=== PATIENT | female | born 1960 | race American Indian/Alaskan Native ===

== ENCOUNTER 2019-06-13 09:47 | Outpatient (CLI) | payer MEDICAID ==
--- NOTE | 2019-06-13 13:31 | Nuclear Medicine Report ---
PARATHYROID SCAN HISTORY: Hypercalcemia COMPARISON: None. TECHNIQUE: Following the intravenous administration of [id number], early and delayed anterior i mages of the neck and upper thorax were acquired. RADIOPHARMACEUTICAL: 20 mCi of [id number] FINDINGS: EARLY IMAGING: Slightly asymmetric distribution of the radiotracer with increased accumulation in the right side. DELAYED IMAGING: Near complete symmetric washout from the normal thyroid tissue. No abnormal thoraci c activity. Additional Findings: None. IMPRESSION: No parathyroid adenoma is identified. Signer Name: Rafael Akins Jr, MD Signed: 06/13/2019 1:27 PM Workstation Name: [id number]
== END 2019-06-13 09:48 | disposition home or self-care (01) ==
LOC: NM 09:47
PROVIDERS: ATTEND Internal Medicine Nephrology
DX: E83.52 Hypercalcemia (principal); I10 Essential (primary) hypertension; K21.9 Gastro-esophageal reflux disease without esophagitis; E66.9 Obesity, unspecified; Z90.710 Acquired absence of both cervix and uterus
CPT/HCPCS: 78070; A9500

== ENCOUNTER 2021-07-28 06:26 | Day surgery (SDC) | payer MEDICAID ==
[2021-07-28] MEDS ORDERED: SODIUM CHLORIDE 0.9% 1000 ML 1,000 ML IV SCH (07:00)
[2021-07-28] MEDS ORDERED: propofoL 200 MG/20 ML VIAL IV ONE ×2 (07:13→07:14)
[2021-07-28] MEDS ORDERED: LIDOCAINE MPF (2%) 20 MG/1 ML VIAL 5 ML ONE (07:13)
[2021-07-28] MEDS ORDERED: WATER FOR IRRIG STERILE 250 ML BOTTLE IR ONE (07:18)
[2021-07-28] MEDS ORDERED: WATER FOR IRRIG STERILE 1,000 ML BOTTLE ONE (07:18)
--- NOTE | 2021-07-28 07:50 | Anesthesia Day of Surgery ---
Anesthesia Day of Surgery - Day of Surgery Patient Examined: Yes Patient H&P Reviewed: Yes Patient is NPO: Yes
--- NOTE | 2021-07-28 07:50 | Anesthesia Consultation ---
Anesthesia Consult and Med Hx Date of service: 07/28/21 - Airway Anesthetic Teeth Evaluation: Poor, Chipped, Partials (upper ) ROM Head & Neck: Adequate Mental/Hyoid Distance: Adequate Mallampati Class: Class I Intubation Access Assessment: Probably Good - Pulmonary Exam CTA: Yes - Cardiac Exam Cardiac Exam: RRR - Pre-Operative Health Status ASA Pre-Surgery Classification: ASA3 Proposed Anesthetic Plan: MAC - Pulmonary Hx Smoking: No Hx Asthma: No Hx Sleep Apnea: No - Cardiovascular System Hx Hypertension: Yes Hx Coronary Artery Disease: Yes (on medical therapy) Hx Heart Attack/AMI: No (h/o Cardiomyopathy/CHF but recent EF 50-55%) Hx Angina: No Hx Cardia Arrhythmia: No Hx Peripheral Vascular Disease: No (+ peripheral edema on Lasix PRN) - Central Nervous System Hx Seizures: No CVA: No - Gastrointestinal Hx Gastroesophageal Reflux Disease: Yes - Endocrine Hx End Stage Renal Disease: Yes (on HD) Hx Non-Insulin Dependent Diabetes: No Hx Thyroid Disease: No - Hematic Hx Anemia: Yes (FOLLOWED BY DR SHEIKH) - Other Systems Hx Alcohol Use: No Hx Substance Use: No Hx Obesity: Yes (BMI= 38)
--- NOTE | 2021-07-28 08:54 | Short Stay Summary ---
Short Stay Documentation Date of service: 07/28/21 Narrative H&P: The patient presents for high risk colon cancer screening, father had colon cancer. Last study 9 years ago. - History Past Medical History: heart failure, hypertension, other (chronic kidney disease, stage 3) Past Surgical History: cholecystectomy, hysterectomy Social history: no significant social history - Allergies and Medications Current Medications: Allergies No Known Allergies Allergy (Verified 06/16/15 14:56) Home Medications Medication Instructions Recorded Confirmed Last Taken Type Aspirin [Aspirin BABY CHEW TAB] 81 mg PO DAILY 06/16/15 07/23/15 07/22/15 History Famotidine [Pepcid] 20 mg PO DAILY 06/16/15 07/23/15 07/22/15 History Furosemide [Lasix TAB] 40 mg PO BID 06/16/15 07/23/15 07/22/15 History Gabapentin 300 mg PO BID 06/16/15 07/23/15 07/22/15 History Loratadine (Nf) [Claritin] 10 mg PO DAILY 06/16/15 07/23/15 07/22/15 History allopurinoL [Zyloprim] 100 mg PO BID 06/16/15 07/23/15 07/22/15 History carvediloL [Coreg] 25 mg PO BID 06/16/15 07/23/15 07/23/15 05:45 History lisinopriL [Zestril TAB] 10 mg PO QDAY 06/16/15 07/23/15 07/23/15 05:45 History HYDROcodone/APAP 7.5-325 [[place] 1 each PO Q6HR PRN 07/21/15 07/23/15 07/22/15 History 7.5/325] Spironolactone [Aldactone] 25 mg PO QDAY 07/21/15 07/23/15 07/22/15 History cloNIDine [Catapres] 0.1 mg PO BID 07/21/15 07/23/15 07/23/15 05:45 History Docusate Sodium [Colace] 100 mg PO BID PRN 07/23/21 07/23/21 Unknown History Potassium Chloride [K-Dur] 10 meq PO QDAY 07/23/21 07/23/21 Unknown History Vitamin D3 07/23/21 Unknown History Active Medications Sodium Chloride (Nacl 0.9% 1000 Ml) 1,000 mls @ 50 mls/hr IV DIRECT MELA - Physical exam General appearance: no acute distress, well-nourished, obese Integumentary: no rash, no growths, no abnormal pigmentation HEENT: Atraumatic, PERRLA, EOMI, Mucous membr. moist/pink Lungs: Clear to auscultation, Normal air movement Breasts: deferred Heart: Regular rate, Normal S1, Normal S2, No murmurs Gastrointestinal: normoactive bowel sounds, no tenderness, no distended, no masses, no organomegaly, obese Female Genitourinary: deferred Rectal Exam: normal exam-external/orifice, normal rectal tone, no mass Extremities: no ischemia, pulses intact, pulses symmetrical, No edema, normal temperature, normal color, Full ROM Neurological: Normal gait, Normal speech, Strength at 5/5 X4 ext, Normal tone, Sensation intact, Cranial nerves 3-12 NL - Brief post op/procedure progress note Date of procedure: 07/28/21 Findings: see dictation Estimated blood loss: none Pathology: list (ascending colon polyp) Specimen disposition: to lab Condition: stable - Disposition Condition at discharge: Good Disposition: 01 HOME / SELF CARE / HOMELESS - Discharge Diagnoses (1) Family history of colon cancer in father Status: Acute Short Stay Discharge Plan Activity: other (no driving for 24 hours) Weight Bearing Status: Weight Bear as Tolerated Diet: regular Follow up with: SAJI BURR MD [Primary Care Provider] - 7 Days
--- NOTE | 2021-07-28 08:56 | Operative Report ---
Operative Report Operative Report: Date of procedure: 07/28/2021 Preprocedure diagnosis: Family history of colon cancer, father. Last study 9 y ears ago. Post procedure diagnosis: 8 mm pedunculated polyp in the ascending colon Procedure: Colonoscopy to the cecum with hot snare polypectomy Endoscopist: Dr. Hill Anesthesia: Monitored anesthesia care per anesthesia department Estimated blood loss: 0 Medications: Monitored anesthesia care. See separate report by anesthesia for details. After careful discussion of the nature and purpose of the procedure as well as details of the technique risks benefits and alternatives the patient gave consent. Please see recent history and physical from the office. The patient was placed in the left lateral decubitus position and medicated per anesthesia. A rectal exam was performed sphincter tone was normal there were no masses palpable. The Dental Fix RXn 570 scope was passed transanally and advanced under continuous direct vision without difficulty to the cecum. The colon was well prepared. The cecum was normal. The ascending colon revealed an 8 mm pedunculated polyp. The polyp was removed with snare electrocautery and retrieved by suction. The ascending colon was otherwise normal and on forward and retroflexed views. The transverse colon, descending colon, and sigmoid colon were normal. The rectum was normal on forward and retroflexed views. The procedure was well-tolerated overall and the patient was observed in recovery. Conclusions: 8 mm ascending colon polyp. Plan: Await pathology. Repeat colonoscopy in 5 years. Signed electronically: Tong Hill M.D.
--- NOTE | 2021-07-28 09:34 | Post Anesthesia Evaluation ---
- Post Anesthesia Evaluation Patient Participated: Yes Airway Patent: Yes Stable Respiratory Function: Yes Nausea/Vomiting: No Temp > 96.8F: Yes Pain Manageable: Yes Adequeate Hydration: Yes Anesthesia Complications: No
[2021-07-28 11:27] VITALS: BP 134/80
== END 2021-07-28 09:45 | disposition home or self-care (01) ==
LOC: GIO 06:26
PROVIDERS: ATTEND Internal Medicine Gastroenterology
DX: Z12.11 Encounter for screening for malignant neoplasm of colon (principal); D12.2 Benign neoplasm of ascending colon; K63.89 Other specified diseases of intestine; I25.10 Atherosclerotic heart disease of native coronary artery without angina pectoris; K21.9 Gastro-esophageal reflux disease without esophagitis; I12.0 Hypertensive chronic kidney disease with stage 5 chronic kidney disease or end stage renal disease; N18.6 End stage renal disease; E66.9 Obesity, unspecified; Z80.0 Family history of malignant neoplasm of digestive organs; Z90.49 Acquired absence of other specified parts of digestive tract; Z98.890 Other specified postprocedural states; Z79.899 Other long term (current) drug therapy; Z68.38 Body mass index [BMI] 38.0-38.9, adult
CPT/HCPCS: 45385; 88305; J2704; J7030